=== PATIENT | female | born 1965 | race African-American/Black ===

== ENCOUNTER 2024-06-09 19:54 | Emergency (ER) | payer OTHER ==
[~2024-06-09] VITALS: Ht 165.1 cm; Wt 70.0 kg
[2024-06-09 20:00] VITALS: O2SAT 96
[2024-06-09] MEDS: MORPHINE SULFATE 4 MG/ML INJ (FOR IV/IM USE) IV ONE (20:25)
[2024-06-09] MEDS: KETOROLAC 15MG/ML VIAL IV ONE (20:26)
[2024-06-09 20:47] LABS: BASOPHILS % 0.4 % (0.0-2.0); EOSINOPHILS % 0.6 % (0.0-5.0); HEMATOCRIT. 33.9 % (36.0-48.0); LYMPHOCYTES % 10.5 % (20.0-50.0); MEAN CORPUSCULAR HEMOGLOBIN 22.4 pg (28.0-32.0); MEAN CORPUSCULAR HGB CONC 32.6 g/dL (31.0-37.0); MEAN CORPUSCULAR VOLUME 68.7 fL (81.0-99.0); MEAN PLATELET VOLUME 7.7 fl (7.4-10.4); MONOCYTES % 1.6 % (2.0-8.0); NEUTROPHILS % 86.9 % (40.0-76.0); PLATELET 356 x1000/uL (130-400); RED BLOOD CELL COUNT 4.93 mill/uL (4.2-5.4); RED CELL DISTRIBUTION WIDTH 16.2 % (11.6-14.6); WHITE BLOOD COUNT 11.1 x1000/uL (4.5-11.0)
[2024-06-09 20:48] LABS: ADD RBC MORPHOLOGY YES; DIFFERENTIAL COMMENT 1
[2024-06-09] MEDS: DIPHENHYDRAMINE 50MG/ML VIAL IV ONE (20:48)
[2024-06-09 21:03] LABS: ANISOCYTOSIS 1+; HYPOCHROMASIA 1+; MICROCYTOSIS 3+; PLATELET ESTIMATE NORMAL
[2024-06-09 21:09] LABS: CHLORIDE 106 mEq/L (98-107); POTASSIUM 2.9 mEq/L (3.5-5.1); SODIUM 145 mEq/L (136-145)
[2024-06-09 21:10] LABS: CARBON DIOXIDE 28 mEq/L (21-32)
[2024-06-09 21:11] LABS: CALCIUM 9.8 mg/dL (8.7-10.4)
[2024-06-09 21:15] LABS: CREATININE 0.8 mg/dL (0.6-1.0); GLUCOSE 120 mg/dL (70-105); UREA NITROGEN BLOOD 10 mg/dL (9-23)
[2024-06-09 21:24] LABS: TROPONIN I HIGH SENSITIVITY < 4 ng/L (3.0-34)
[2024-06-09] MEDS ORDERED: NAPR-1486 MT (22:07)
[2024-06-09 22:55] VITALS: BP 117/73; PULSE 92; RESP 16; TEMP 36.6; O2SAT 98
[2024-06-09] MEDS: POTASSIUM CHLORIDE 20MEQ/PACKET PO ONE (22:56)
[2024-06-10] MEDS ORDERED: IOHEXOL-350 100 ML BOTTLE ONE (00:06)
== END 2024-06-09 23:00 | disposition home or self-care (01) ==
LOC: ER 19:54
DX: R07.89 Other chest pain (principal); N13.2 Hydronephrosis with renal and ureteral calculous obstruction; I10 Essential (primary) hypertension; Z79.1 Long term (current) use of non-steroidal anti-inflammatories (NSAID); Z79.899 Other long term (current) drug therapy; R51.9 Headache, unspecified; V49.9XXA Car occupant (driver) (passenger) injured in unspecified traffic accident, initial encounter; Y93.89 Activity, other specified; Y92.89 Other specified places as the place of occurrence of the external cause; Y99.8 Other external cause status
CPT/HCPCS: 99285; 71275; 96374; 96375; 71045; 80048; 83880; 85025; 84484; 36415; 70450; 93005; J1885; Q9967; J1200; J2270